=== PATIENT | male | born 1995 | race Caucasian/White ===

== ENCOUNTER 2021-05-29 16:14 | Emergency (ER) | payer OTHER, MEDICAID, SELFPAY ==
[~2021-05-29] VITALS: Ht 185.4 cm; Wt 111.1 kg
[2021-05-29 16:15] VITALS: BP_SYST 146
[2021-05-29] MEDS ORDERED: ALBMDI INH (17:34)
[2021-05-29 17:40] VITALS: BP_SYST 146
== END 2021-05-29 17:40 | disposition home or self-care (01) ==
LOC: SED 16:14
DX: J45.909 Unspecified asthma, uncomplicated (principal)
CPT/HCPCS: 99281; 99283

== ENCOUNTER 2021-11-01 02:54 | Emergency (ER) | payer OTHER, MEDICAID ==
[~2021-11-01] VITALS: Ht 185.4 cm; Wt 111.6 kg
[~2021-11-01 02:54] MED LIST: ALBMDI INH
[2021-11-01 03:30] VITALS: BP_SYST 144
--- NOTE | 2021-11-01 03:30 | NUR ---
Patient came in to the Emergency department complains of sore throat worse on the left side of approximately 3 to 4 days duration. Patient does report recurrent ENT infections. Patient breathing easy, respirations even unlabored. Patient reports 4/10 PS but worse on swallowing. Patient afebrile, no N/V/D, denies headache, chest pain. Patient ambulatory with steady gait.
--- NOTE | 2021-11-01 03:33 | NUR ---
ER in triage examining patient.
[2021-11-01] MEDS ORDERED: PENICILLIN G BENZATHINE 1.2 MMU/2 ML SYR IM ONE (03:45)
[2021-11-01] MEDS ORDERED: prednisoLONE 15 MG/5 ML UDC PO ONE (03:45)
[2021-11-01] MEDS ORDERED: PRELO PO (03:46)
[2021-11-01] MEDS ORDERED: ACET12.55 PO (03:46)
[2021-11-01] MEDS ORDERED: IBUP-2725 PO (03:46)
[2021-11-01 04:27] VITALS: BP_SYST 142
--- NOTE | 2021-11-01 04:27 | NUR ---
Patient given written and verbal discharge instructions and verbalizes understanding. ER MD discussed with patient the results and treatment provided. Patient in stable condition. ID arm band removed. Rx of Prednisolone, tylenol with codeine and ibuprofen sent to preferred pharmacy by ER MD. Patient educated on pain management and to follow up with PMD. Pain Scale 4/10. Opportunity for questions provided and answered.
== END 2021-11-01 04:27 | disposition home or self-care (01) ==
LOC: SED 02:54
DX: J03.90 Acute tonsillitis, unspecified (principal); J45.909 Unspecified asthma, uncomplicated; R50.9 Fever, unspecified; R19.7 Diarrhea, unspecified; Z79.899 Other long term (current) drug therapy
CPT/HCPCS: 96372; 99283; J0561

== ENCOUNTER 2023-03-11 12:40 | Emergency (ER) | payer MEDICAID, OTHER ==
[~2023-03-11] VITALS: Ht 188 cm; Wt 98.9 kg
[~2023-03-11 12:40] MED LIST changes: +ACET12.55 PO; +IBUP-2725 PO; +PRED15SO73 PO
[2023-03-11 12:54] VITALS: BP_SYST 131; PULSE 82; RESP 18; TEMP 98.3; O2SAT 99
[2023-03-11] MEDS ORDERED: NACL 0.9% 2,000 ML IV ONE (13:15)
[2023-03-11 13:27] LABS: BASOPHILS % (AUTO) 0.3 % (0.0-2.0); EOSINOPHILS # (AUTO) 0.1 K/uL (0.0-0.4); HEMATOCRIT 48.3 % (36-54); HEMOGLOBIN 16.6 g/dL (14.0-18.0); LYMPHOCYTES # (AUTO) 1.8 K/uL (1.0-5.5); LYMPHOCYTES % (AUTO) 25.4 % (20.5-51.5); MEAN CORPUSCULAR HEMOGLOBIN 29 pg (27-31); MEAN CORPUSCULAR HGB CONC 34 % (32-36); MEAN CORPUSCULAR VOLUME 84 fL (79.0-98.0); MONOCYTES # (AUTO) 0.4 K/uL (0.0-1.0); MONOCYTES % (AUTO) 5.3 % (1.7-9.3); NEUTROPHILS # (AUTO) 4.8 K/uL (1.8-7.7); PLATELET COUNT (AUTO) 275 K/uL (130-430); RED BLOOD CELL COUNT(AUTO) 5.75 MIL/uL (4.2-6.2); RED CELL DISTRIBUTION WIDTH 13.3 % (9.0-15.0); WHITE BLOOD COUNT (AUTO) 7.1 K/uL (4.8-10.8)
[2023-03-11 13:43] LABS: ANION GAP 9 (5-15); CALCIUM 9.3 mg/dL (8.4-11.0); CARBON DIOXIDE 31 mmol/L (23-29); CHLORIDE 100 mmol/L (98-107); CREATININE 0.91 mg/dL (0.55-1.30); GFR AFRICAN AMERICAN 127 mL/min (>90); GLUCOSE 122 mg/dL (74-106); POTASSIUM 3.4 mmol/L (3.5-5.1); SODIUM SERUM 140 mmol/L (136-145); UREA NITROGEN, BLOOD 7 mg/dL (8-21)
[2023-03-11 13:44] LABS: GFR NON AFRICAN-AMERICAN 105 mL/min (>90)
[2023-03-11 13:48] LABS: ALANINE AMINOTRANSFERASE 39 U/L (12-78); ALBUMIN 4.2 g/dL (3.4-4.8); ASPARTATE AMINOTRANSFERASE 22 U/L (10-37); CREATINE KINASE, TOTAL 82 U/L (39-308); TOTAL BILIRUBIN 1.6 mg/dL (0.0-1.0); TOTAL PROTEIN, SERUM 7.9 g/dL (6.4-8.3)
[2023-03-11 14:02] LABS: ACETONE, SERUM NEGATIVE (NEGATIVE)
[2023-03-11 15:55] VITALS: BP_SYST 139; PULSE 63; RESP 18; TEMP 98.2; O2SAT 97
== END 2023-03-11 15:52 | disposition home or self-care (01) ==
LOC: SED 12:40
DX: R53.1 Weakness (principal); E86.0 Dehydration; J45.909 Unspecified asthma, uncomplicated; Z79.899 Other long term (current) drug therapy
CPT/HCPCS: 99283; 96360; 80053; 82009; 82550; 85025; 36415; 83605; J7030